=== PATIENT | female | born 1985 | race African-American/Black ===

== ENCOUNTER 2020-04-05 08:52 | Emergency (ER) | payer MEDICAID ==
[~2020-04-05] VITALS: Ht 167.6 cm; Wt 109.1 kg
--- NOTE | 2020-04-05 09:28 | NUR ---
pt to ed c/o redness/swelling/pain in L calf and lateral lower leg. flight from [place] 3 days ago. sx started 3 days ago. warmth. pain on movement, standing. denies control, smokes lightly x2 years, no hx clots, no fam hx clots. us ordered, labs in prog. helped to commode. denies sob. vss. as
[2020-04-05] MEDS ORDERED: SODIUM CHLORIDE FLUSH 10ML SYR IVF ONE (09:30)
[2020-04-05 09:31] VITALS: BP 115/80
[2020-04-05 09:46] LABS: ALBUMIN 3.7 g/dL (3.4-5.0); ANION GAP 3 mmol/L (5-15); CALCIUM 8.8 mg/dL (8.5-10.1); CHLORIDE 110 mmol/L (98-107)
[2020-04-05 09:51] LABS: ALANINE AMINOTRANSFERASE 17 U/L (12-78); ALKALINE PHOSPHATASE 87 U/L (45-117); BILIRUBIN,TOTAL 0.2 mg/dL (0.2-1.0); CREATININE 0.85 mg/dL (0.55-1.02); TOTAL PROTEIN 8.4 g/dL (6.4-8.2)
[2020-04-05 09:59] LABS: MEAN CORPUSCULAR HEMOGLOBIN 19.3 pg (27.0-34.8); MEAN CORPUSCULAR VOLUME 64.7 fL (80-100); MEAN PLATELET VOLUME 8.4 fL (7.4-10.4); PLATELET COUNT 423 x10^3/uL (130-400); RED BLOOD COUNT 5.24 x10^6/uL (3.82-5.3); RED CELL DISTRIBUTION WIDTH 19.5 % (9.6-15.2)
[2020-04-05 10:09] LABS: HEMOGRAM NOTE RECHECKED; MD YES; MEAN CORPUSCULAR HGB CONC 29.9 g/dL (32.4-35.8)
[2020-04-05 10:11] LABS: EOS#(MANUAL) 0.29 x10^3/uL (0.0-0.4); EOS% (MANUAL) 3 % (1-7); LYMPH#(MANUAL) 2.33 x10^3/uL (1-3.4); LYMPHS% (MANUAL) 24 % (22-44); MONOS#(MANUAL) 0.58 x10^3/uL (0.3-2.7); MONOS% (MANUAL) 6 % (2-9); SEGS% (MANUAL) 67 % (42-75)
[2020-04-05 10:12] LABS: ANISOCYTOSIS 2+; HYPOCHROMIA 1+; MICROCYTOSIS 2+; OVALOCYTES 1+
[2020-04-05 10:14] LABS: <PLATELET ESTIMATE> INCREASED; <PLT MORPHOLOGY> NORMAL PLT MORPH
--- NOTE | 2020-04-05 10:25 | NUR ---
us neg for dvt recheck. as
--- NOTE | 2020-04-05 11:11 | NUR ---
given crutches as
== END 2020-04-05 11:11 | disposition home or self-care (01) ==
LOC: ED 09:09
DX: L03.116 Cellulitis of left lower limb (principal); F17.200 Nicotine dependence, unspecified, uncomplicated; J45.909 Unspecified asthma, uncomplicated
CPT/HCPCS: 36415; 80053; 83605; 85025; 99285

== ENCOUNTER 2020-05-11 19:09 | Emergency (ER) | payer SELFPAY ==
[~2020-05-11] VITALS: Ht 170.2 cm; Wt 108.3 kg
[2020-05-11] MEDS ORDERED: BUPIVACAINE 0.25% INFIL ONE (19:30)
[2020-05-11] MEDS ORDERED: LIDOCAINE 1%, 2ML INFIL ONE (19:30)
[2020-05-11] MEDS ORDERED: KETOROLAC 30 MG/1 ML IM ONE (19:30)
[2020-05-11] MEDS ORDERED: LIDOCAINE-MPF 1%, 2ML ONE (19:34)
[2020-05-11] MEDS ORDERED: BUPIVACAINE 0.25% ONE (19:34)
--- NOTE | 2020-05-11 19:40 | NUR ---
PT COMING IN WITH RIGHT SIDED FACIAL/DENTAL PAIN AND SWELLING WELL HAVING FOUL SMELLING URINE AND LOWER QUADRANT ABDOMINAL PAIN THAT ALL STARTED 3 DAYS AGO. PT SUPPOSED TO HAVE DENTAL PROCEDURE A WHILE AGO BUT BECAUSE OF COVID PT UNABLE TO GET APPOINTMENT AND PAIN HAS BEEN GETTING PROGRESSIVLY WORSE. URINE COLLECTED, PT ON MONITORS, AND HOLDING MEDS UNTIL TEST COMES BACK.
[2020-05-11 19:52] LABS: HCG UR SG 1.015 (1.003-1.030); MICROSCOPIC AUTO
[2020-05-11] MEDS ORDERED: HYDROmorphone 1 MG/ML, 1ML INJ ONE (20:30)
[2020-05-11] MEDS ORDERED: AZITHROMYCIN 500 MG TABLET PO ONE (21:00)
[2020-05-11] MEDS ORDERED: CEFTRIAXONE 250 MG IM ONE (21:00)
[2020-05-11] MEDS ORDERED: HYDROmorphone 1 MG/ML, 1ML INJ IM ONE (21:00)
[2020-05-11] MEDS ORDERED: AZITHROMYCIN 500 MG TABLET ONE (21:15)
[2020-05-11] MEDS ORDERED: CEFTRIAXONE 250 MG ONE (21:15)
[2020-05-11 21:22] VITALS: BP 111/75
--- NOTE | 2020-05-11 21:39 | NUR ---
PT MEDICATED ME EMAR, WHEN GOING BACK IN TO RECHECK PT STATED FEELING LIGHTHEADED, NAUSEAS AND SWEATY. ERP UPDATED, STATED TO GIVE PT JUICE AND CRACKERS AND RECHECK AND SEE HOW PT FEELS. SON AT BEDSIDE
--- NOTE | 2020-05-11 21:55 | NUR ---
PT STATES FEELING A LOT BETTER, GIVEN DISCHARGE INSTRUCTIONS AND SON TO DRIVE HER HOME
== END 2020-05-11 21:58 | disposition home or self-care (01) ==
LOC: ED 21:00
DX: K02.9 Dental caries, unspecified (principal); K04.7 Periapical abscess without sinus; N39.0 Urinary tract infection, site not specified; Z20.2 Contact with and (suspected) exposure to infections with a predominantly sexual mode of transmission; Z72.9 Problem related to lifestyle, unspecified; F17.290 Nicotine dependence, other tobacco product, uncomplicated; F12.10 Cannabis abuse, uncomplicated; J45.909 Unspecified asthma, uncomplicated
CPT/HCPCS: 41800; 81001; 81025; 87077; 87086; 96372; 99284; 99406; J0696; J1170; 87186

== ENCOUNTER 2020-06-02 06:13 | Emergency (ER) | payer MEDICAID ==
[~2020-06-02] VITALS: Ht 170.2 cm; Wt 105.0 kg
[2020-06-02] MEDS ORDERED: ACETAMINOPHEN 325 MG TABLET ONE (06:26)
[2020-06-02] MEDS ORDERED: CYCLOBENZAPRINE 10 MG TABLET ONE (06:26)
[2020-06-02] MEDS ORDERED: CYCLOBENZAPRINE 10 MG TABLET PO ONE (06:30)
[2020-06-02] MEDS ORDERED: ACETAMINOPHEN 325 MG TABLET PO ONE (06:30)
[2020-06-02] MEDS ORDERED: ALBU0.63 INH (06:31)
--- NOTE | 2020-06-02 06:34 | NUR ---
Patient comes in with complaints of bilateral lower leg cramping that has been going on x1 month. Patient states that last night it woke her up and pain was 10/10. 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 Had to wake patient several times to ask questions. Patient resting comfortable at this time, medication given
[2020-06-02 06:48] LABS: BASOPHILS % (AUTO) 1 % (0-1); EOSINOPHILS % (AUTO) 2 % (1-7); LYMPHOCYTES % (AUTO) 29 % (22-44); MEAN CORPUSCULAR HEMOGLOBIN 19.2 pg (27.0-34.8); MEAN CORPUSCULAR HGB CONC 30.1 g/dL (32.4-35.8); MEAN PLATELET VOLUME 8.1 fL (7.4-10.4); MONOCYTES % (AUTO) 7 % (2-9); NEUTROPHILS % (AUTO) 62 % (42-75); PLATELET COUNT 390 x10^3/uL (130-400); RED BLOOD COUNT 5.39 x10^6/uL (3.82-5.3); RED CELL DISTRIBUTION WIDTH 18.5 % (9.6-15.2)
[2020-06-02 06:59] LABS: ANION GAP 5 mmol/L (5-15); CALCIUM 8.7 mg/dL (8.5-10.1); CHLORIDE 106 mmol/L (98-107); CREATININE 1.05 mg/dL (0.55-1.02)
--- NOTE | 2020-06-02 07:11 | NUR ---
PT RESTING CALMLY IN BED WITH EYES CLOSED. NO STATED NEEDS
[2020-06-02 07:38] LABS: MD MORPH REVIEW ONLY
[2020-06-02 07:39] LABS: <PLATELET ESTIMATE> ADEQUATE; <PLT MORPHOLOGY> NORMAL PLT MORPH; ANISOCYTOSIS 2+; HYPOCHROMIA 1+; MICROCYTOSIS 2+; OVALOCYTES 1+
[2020-06-02 07:54] VITALS: BP 102/54
== END 2020-06-02 07:57 | disposition home or self-care (01) ==
LOC: ED 06:30
DX: M62.831 Muscle spasm of calf (principal); R10.9 Unspecified abdominal pain; J45.909 Unspecified asthma, uncomplicated; F17.200 Nicotine dependence, unspecified, uncomplicated
CPT/HCPCS: 36415; 80048; 85025; 99283

== ENCOUNTER 2020-09-18 05:42 | Inpatient (IN) | payer MEDICAID ==
[~2020-09-18] VITALS: Ht 170.2 cm; Wt 110.0 kg
[~2020-09-18 05:42] MED LIST: ALBU0.63 INH
--- NOTE | 2020-09-18 05:53 | NUR ---
INITIAL PT CONTACT. PT PRESENTS TO ED C/O COUGH, FEVER, BODY ACHES, LOSS OF TASTE AND SMELL & SORE THROAT WITH WHITE PATCHES THAT STARTED YESTERDAY MORNING AND PROGRESSIVELY WORSENED. TOOK ADVIL AT 0245 WITH NO RELIEF. PT ALSO C/O POSSIBLE BLADDER INFECTION X 2DAYS, "BURNING WHEN I PEE". PT SITTING SUPINE ON GURNEY, NADN, VSS. PT PROVIDED BLANKET. NO ADDITIONAL NEEDS AT THIS TIME. CONTINUOUS PULSE OX AND CARDIAC MONITORING IN PLACE. ERP AT BEDSIDE.
[2020-09-18] MEDS ORDERED: DEXAMETHASONE 4 MG/ML, 1ML IVPush STA (06:11)
[2020-09-18] MEDS ORDERED: DEXAMETHASONE 4 MG/ML, 5ML ONE (06:26)
[2020-09-18] MEDS ORDERED: HYDROmorphone 1 MG/ML, 1ML INJ ONE ×2 (06:26→08:39)
[2020-09-18] MEDS ORDERED: ONDANSETRON 2MG/ML, 2ML ONE (06:26)
[2020-09-18] MEDS ORDERED: CEFTRIAXONE PMX 1GM/50ML 50 ML ONE (06:26)
[2020-09-18 06:28] LABS: BASOPHILS % (AUTO) 1 % (0-1); EOSINOPHILS % (AUTO) 0 % (1-7); LYMPHOCYTES % (AUTO) 5 % (22-44); MEAN CORPUSCULAR HEMOGLOBIN 19.9 pg (27.0-34.8); MEAN CORPUSCULAR HGB CONC 30.7 g/dL (32.4-35.8); MEAN PLATELET VOLUME 8.8 fL (7.4-10.4); MONOCYTES % (AUTO) 6 % (2-9); NEUTROPHILS % (AUTO) 88 % (42-75); PLATELET COUNT 307 x10^3/uL (130-400); RED CELL DISTRIBUTION WIDTH 18.4 % (9.6-15.2)
[2020-09-18] MEDS: HYDROmorphone 1 MG/ML, 1ML INJ IVPush PRN ×2 (06:28→08:44)
[2020-09-18] MEDS ORDERED: SODIUM CHLORIDE FLUSH 10ML SYR IVF ONE (06:30)
[2020-09-18] MEDS ORDERED: ONDANSETRON 2MG/ML, 2ML IVPush ONE (06:30)
[2020-09-18] MEDS ORDERED: CEFTRIAXONE PMX 1GM/50ML 50 ML IVPB ONE (06:30)
[2020-09-18 06:38] LABS: MICROSCOPIC AUTO
--- NOTE | 2020-09-18 06:38 | NUR ---
PIV INSERTION, PT TOLERATED WELL. PT MEDICATED PER EMAR. ERP AT BEDSIDE FOR COVID SWAB.
[2020-09-18 06:40] LABS: ALBUMIN 3.5 g/dL (3.4-5.0); ANION GAP 8 mmol/L (5-15); CALCIUM 8.4 mg/dL (8.5-10.1); CHLORIDE 105 mmol/L (98-107)
[2020-09-18 06:52] LABS: MD MORPH REVIEW ONLY
[2020-09-18 06:53] LABS: ANISOCYTOSIS 2+; HYPOCHROMIA 1+; MICROCYTOSIS 2+
--- NOTE | 2020-09-18 06:53 | NUR ---
BEDSIDE REPORT TO AUBREE CAMEJO
[2020-09-18 06:54] LABS: <PLATELET ESTIMATE> ADEQUATE; <PLT MORPHOLOGY> NORMAL PLT MORPH; OVALOCYTES 1+
[2020-09-18] MEDS ORDERED: DEXAMETHASONE 4 MG/ML, 1ML IVPush ONE (07:00)
--- NOTE | 2020-09-18 08:48 | NUR ---
PT MEDICATED PER OCT FOR HEADACHE 02/05
[2020-09-18] MEDS ORDERED: SENNA/DOCUSATE TABLET PO PRN (09:30)
[2020-09-18] MEDS ORDERED: ONDANSETRON ODT 4 MG PO PRN (09:30)
[2020-09-18] MEDS ORDERED: ACETAMINOPHEN 325 MG TABLET PO PRN (09:30)
[2020-09-18] MEDS ORDERED: ALBUTEROL HFA 90 MCG/SPRAY INH PRN (09:30)
[2020-09-18] MEDS ORDERED: POLYETHYLENE GLYCOL 17 GM PACKET PO PRN (09:30)
[2020-09-18] MEDS ORDERED: CEFTRIAXONE PMX 1GM/50ML 50 ML IV SCH (09:30)
[2020-09-18] MEDS ORDERED: ONDANSETRON 2MG/ML, 2ML IVPush PRN (09:30)
[2020-09-18] MEDS ORDERED: IBUPROFEN 600 MG TABLET PO PRN (09:30)
--- NOTE | 2020-09-18 09:55 | NUR ---
PHONE REPORT GIVEN TO NELL ABARCA [id number]
[2020-09-18 10:23] VITALS: BP 103/70
[2020-09-18] MEDS: ENOXAPARIN 40 MG/0.4 ML SQ SCH (12:12)
[2020-09-18] MEDS: NS + 20MEQ KCL 1,000 ML IV SCH ×2 (12:12→21:25)
[2020-09-18 14:04] VITALS: BP 103/65
[2020-09-18 20:09] VITALS: BP 106/66
[2020-09-19 00:31] VITALS: BP 117/71
[2020-09-19 08:07] LABS: MEAN CORPUSCULAR HEMOGLOBIN 19.5 pg (27.0-34.8); MEAN PLATELET VOLUME 8.6 fL (7.4-10.4); PLATELET COUNT 346 x10^3/uL (130-400); RED BLOOD COUNT 4.98 x10^6/uL (3.82-5.3); RED CELL DISTRIBUTION WIDTH 18.8 % (9.6-15.2)
[2020-09-19 08:19] LABS: ALBUMIN 2.7 g/dL (3.4-5.0); ANION GAP 5 mmol/L (5-15); CALCIUM 8.4 mg/dL (8.5-10.1); CHLORIDE 108 mmol/L (98-107)
[2020-09-19 08:23] LABS: % IRON SATURATION 4 % (20-55); ALANINE AMINOTRANSFERASE 16 U/L (12-78); ALKALINE PHOSPHATASE 88 U/L (45-117); BILIRUBIN,TOTAL 0.2 mg/dL (0.2-1.0); CREATININE 0.67 mg/dL (0.55-1.02); IRON LEVEL 12 mcg/dL (50-170); TOTAL IRON BINDING CAPACITY 330 mcg/dL (250-450); TOTAL PROTEIN 7.1 g/dL (6.4-8.2)
[2020-09-19 08:45] VITALS: BP 123/77
[2020-09-19] MEDS: NS + 20MEQ KCL 1,000 ML IV SCH ×2 (09:11→19:54)
[2020-09-19 09:18] LABS: MD YES; MEAN CORPUSCULAR HGB CONC 29.7 g/dL (32.4-35.8)
[2020-09-19 09:21] LABS: BAND#(MANUAL) 1.67 x10^3/uL; BANDS%(MANUAL) 6 % (0-7); LYMPH#(MANUAL) 2.51 x10^3/uL (1-3.4); LYMPHS% (MANUAL) 9 % (22-44); MONOS#(MANUAL) 3.07 x10^3/uL (0.3-2.7); MONOS% (MANUAL) 11 % (2-9); SEGS% (MANUAL) 74 % (42-75)
[2020-09-19 09:23] LABS: <PLATELET ESTIMATE> ADEQUATE; ANISOCYTOSIS 2+; HYPOCHROMIA 1+; MICROCYTOSIS 2+; OVALOCYTES 1+; POLYCHROMASIA 1+
[2020-09-19 09:24] LABS: <PLT MORPHOLOGY> NORMAL PLT MORPH
[2020-09-19] MEDS: ENOXAPARIN 40 MG/0.4 ML SQ SCH (11:58)
[2020-09-19 12:30] VITALS: BP 111/71
[2020-09-19 18:58] VITALS: BP 121/74
== END 2020-09-19 20:45 | disposition left against medical advice (07) | DRG 872 ==
LOC: ED 08:15 → EDIP 08:17 → 4EST 10:10
PROVIDERS: ADMIT Family Medicine; ATTEND Internal Medicine
DX: A41.9 Sepsis, unspecified organism (principal); D72.828 Other elevated white blood cell count; E66.01 Morbid (severe) obesity due to excess calories; F17.200 Nicotine dependence, unspecified, uncomplicated; J03.00 Acute streptococcal tonsillitis, unspecified; J45.909 Unspecified asthma, uncomplicated; N30.90 Cystitis, unspecified without hematuria; Z20.822 Contact with and (suspected) exposure to COVID-19; Z68.38 Body mass index [BMI] 38.0-38.9, adult; Z79.899 Other long term (current) drug therapy
CPT/HCPCS: 36415; 71045; 76700; 80048; 80053; 81001; 82040; 82728; 83036; 83540; 83550; 83605; 85025; 87040; 87077; 87086; 87186; 87880; 93005; 96365; 96376; 99285; G0378; J0696; J1100; J1170; J1650; J2405; J3480; U0003

== ENCOUNTER 2021-04-20 10:08 | Emergency (ER) | payer MEDICAID ==
[~2021-04-20] VITALS: Ht 167.6 cm; Wt 122.0 kg
--- NOTE | 2021-04-20 11:20 | NUR ---
PT IN HOSPITAL GOWN. PT PLACED ON VITALS MONITORS. FAMILY AT BEDSIDE. WILL CONTINUE TO MONITOR.
[2021-04-20] MEDS ORDERED: MORPHINE SULFATE 4 MG/ML, 1ML IVPush PRN (11:30)
[2021-04-20] MEDS ORDERED: SODIUM CHLORIDE FLUSH 10ML SYR IVF ONE (11:30)
[2021-04-20] MEDS ORDERED: KETOROLAC 30 MG/1 ML IVPush ONE (11:30)
[2021-04-20] MEDS ORDERED: MORPHINE SULFATE 4 MG/ML, 1ML ONE (11:47)
[2021-04-20] MEDS ORDERED: KETOROLAC 30 MG/1 ML ONE (11:47)
--- NOTE | 2021-04-20 11:52 | NUR ---
BEDSIDE US BEING DONE AT THIS TIME.
[2021-04-20 12:30] LABS: BASOPHILS % (AUTO) 1 % (0-1); EOSINOPHILS % (AUTO) 1 % (1-7); LYMPHOCYTES % (AUTO) 16 % (22-44); MEAN CORPUSCULAR HEMOGLOBIN 20.2 pg (27.0-34.8); MEAN CORPUSCULAR HGB CONC 30.7 g/dL (32.4-35.8); MEAN PLATELET VOLUME 8.5 fL (7.4-10.4); MONOCYTES % (AUTO) 10 % (2-9); NEUTROPHILS % (AUTO) 73 % (42-75); PLATELET COUNT 330 x10^3/uL (130-400); RED BLOOD COUNT 5.09 x10^6/uL (3.82-5.3); RED CELL DISTRIBUTION WIDTH 18.3 % (9.6-15.2)
[2021-04-20 12:41] LABS: ALBUMIN 3.5 g/dL (3.4-5.0); ANION GAP 7 mmol/L (5-15); CALCIUM 8.7 mg/dL (8.5-10.1); CHLORIDE 105 mmol/L (98-107)
[2021-04-20 12:42] LABS: CREATININE 0.75 mg/dL (0.55-1.02)
[2021-04-20] MEDS ORDERED: CEFTRIAXONE 1,000 MG in DEXTROSE 5% 50 ML IVPB ONE (13:00)
--- NOTE | 2021-04-20 13:10 | NUR ---
IV PLACED, PT MEDICATED FOR PAIN PER EMAR. ORDERED ABX STARTED WELL. PER ERP, NO BLOOD CULTURES NEEDED.
[2021-04-20 13:19] LABS: <PLATELET ESTIMATE> ADEQUATE; <PLT MORPHOLOGY> NORMAL PLT MORPH; ANISOCYTOSIS 1+; HYPOCHROMIA 1+; MICROCYTOSIS 2+; POLYCHROMASIA 1+
--- NOTE | 2021-04-20 15:00 | NUR ---
PT WHEELED TO BATHROOM TO VOID. PT IV REMOVED SHE WILL BE DCd. PT DRESSING HERSELF. 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
[2021-04-20 15:50] VITALS: BP 114/58
== END 2021-04-20 15:51 | disposition home or self-care (01) ==
LOC: ED 11:03
DX: L03.116 Cellulitis of left lower limb (principal); M25.571 Pain in right ankle and joints of right foot; M25.572 Pain in left ankle and joints of left foot; J45.909 Unspecified asthma, uncomplicated
CPT/HCPCS: 36415; 73610; 80048; 82040; 84550; 85025; 93970; 96365; 96375; 99285; J0696; J1885; J2270